=== PATIENT | female | born 1955 | race Caucasian/White ===

== ENCOUNTER 2019-05-24 14:09 | Observation (INO) ==
--- NOTE | 2019-05-24 14:13 | Emergency Department Note ---
Disposition Clinical Impression: Left hip pain, History of fall, Muscle tear Disposition: Admitted As Inpatient Condition: Good Referrals: Derek Rizvi MD [Primary Care Provider] - Forms: ED Satisfaction Letter Time of Disposition: 15:35 Fall HPI - General Chief Complaint: ED Extremity Problem,Nontraumatic Stated Complaint: Fall onset 2 weeks, pain to left groin Time Seen by Provider: 05/24/19 14:11 Source: patient, EMS Mode of arrival: EMS Limitations: no limitations Nursing Notes Reviewed: Yes Vital Signs Reviewed: Yes - History of Present Illness HPI Narrative: Patient relates she fell about 2 weeks ago to her knees. She relates that she is "always in my power chair" but she needed to adjust a fan and got up to walk 3 steps to it and back. In turning around she states that her dog was under foot and she fell to her knees and to her right shoulder. She has had some soreness in the right shoulder but states that she always has pain in it with motion. She has had a history of a rotator cuff injury there. She indicates she is not concerned about the shoulder. She has not had pain to her knees but has had some pain in her left hip. She initially felt as if something might of been pulled but did not have severe pain until today. She relates she leaned forward from her power chair and felt a pop in her groin area and had severe sharp and burning pain. This was intolerable and a squad was called for her transport. She has taken a muscle relaxer, half a Percocet and ibuprofen at 10:30 this morning without relief. She denies pain to her back or abdomen. She denies any other new pain. She has not had numbness or tingling or swelling down the legs. She has had both knees replaced and does not have new pains there. Squad reported to the chest with motion to their cot she was screaming in pain. Pt Subjective Complaint: fall Onset (ago): week(s) (2) Fall From: standing Fall Witnessed: no Place Fall Occurred: home Loss of Consciousness: none Prolonged Down Time?: no Symptoms Prior to Fall: none Context: tripped/slipped Location of injury - extremities: Left: hip Severity: moderate, severe Quality: sharp, aching Associated symptoms (after fall): Reports: unable to walk. Denies: headache, neck pain, numbness, weakness, chest pain, shortness of breath, abdominal pain, hematuria, lightheaded, vertigo, confusion - Related Data Home Medications Medication Instructions Recorded Confirmed Aspirin Enteric Coated [Aspirin EC] 81 mg PO DAILY 08/04/15 05/24/19 Clopidogrel [Plavix] 75 mg PO DAILY 08/04/15 05/24/19 DULoxetine [Cymbalta] 20 mg PO DAILY 08/04/15 05/24/19 Sitagliptin Phos/Metformin HCl 1 each PO BID 08/04/15 05/24/19 [Janumet 50-1,000 mg Tablet] TraZODone 400 mg PO HS 08/04/15 05/24/19 Previous Rx's Medication Instructions Recorded Cyanocobalamin (B-12) 1,000 mcg PO DAILY tablet 08/31/15 Ferrous Sulfate 325 mg PO DAILY@0800 tablet 08/31/15 Folic Acid 1 mg PO DAILY tablet 08/31/15 Metoclopramide [Reglan] 10 mg PO TIDAC #0 08/31/15 OxyCODONE/APAP 5/325 [Percocet 1 each PO Q4HR PRN #60 tablet 08/31/15 5/325] Acetaminophen/Butalbital/Caffe 1 each PO Q6H #16 tablet 12/06/16 [Fioricet] Allergies Allergy/AdvReac Type Severity Reaction Status Date / Time codeine Allergy Hives Verified 05/24/19 14:11 diazepam [From Valium] Allergy Hives Verified 05/24/19 14:11 hydrocodone [From Vicodin] Allergy Hives Verified 05/24/19 14:11 Penicillins [PCN] Allergy Hives Verified 05/24/19 14:11 mirtazapine [From Remeron] AdvReac Nausea Verified 05/24/19 14:11 risperidone [From Risperdal] AdvReac Nausea Verified 05/24/19 14:11 All systems ED: reviewed and negative except as stated. Fall PMH - Past Medical History Medical history: Reports: arthritis, COPD, coronary artery disease, diabetes, hypertension, myocardial infarction, other (Morbid obesity) Surgical history: Reports: angioplasty/stent, , cholecystectomy, knee replacement (Bilateral), orthopedic, other (Left shoulder replacement), other (Bilateral wrist surgery) Psychiatric history: Reports: depression MATTE CUTTER history: Reports: no MATTE CUTTER history - Social History Smoking Status: Never smoker Alcohol use: Reports: none Drug use: Reports: none Physical Exam - General Limitations: no limitations General appearance: alert, in no apparent distress, other (Patient yelled with brief pain in moving from the EMS cot to our bed.) - Head Head exam: atraumatic, normocephalic, normal inspection - Eye Eye exam: Present: normal appearance, PERRL, EOMI - ENT ENT exam: normal exam, normal oropharynx, mucous membranes moist - Neck Neck exam: Present: normal inspection, full ROM, trachea midline - Chest Chest inspection: Present: normal inspection, symmetric chest wall rise. Absent: tenderness - Respiratory Respiratory exam: Present: normal lung sounds bilaterally. Absent: respiratory distress, wheezes, prolonged expiratory phase - Cardiovascular Cardiovascular exam: Present: regular rate, normal rhythm, normal heart sounds - Abdominal Exam Abdominal exam: Present: soft, Non-Tender, normal bowel sounds. Absent: tenderness, distention, guarding, rebound, rigidity - Expanded Upper Extremity Exam Shoulder exam: Present: normal inspection, full ROM, tenderness (Mild over the dorsal lateral aspect of the right shoulder). Absent: swelling, dislocation, tenderness over AC joint Arm exam: Present: normal inspection, full ROM Elbow exam: Present: normal inspection, full ROM. Absent: tenderness, swelling Forearm/Wrist exam: Present: normal inspection, full ROM. Absent: tenderness, swelling Hand exam: Present: normal inspection, full ROM. Absent: tenderness, swelling Vascular exam: Normal: capillary refill, radial pulse - Expanded Lower Extremity Exam Hip/Pelvis exam: Present: tenderness (Anterior and lateral aspect of the left hip.), external rotation, shortening, pelvis stable, other (Patient's left leg appears to be about 2 cm shorter than the right with some external rotation. The patient is unsure if this is truly new) Knee exam: Present: normal inspection, other (Midline anterior scar consistent with her knee replacements.). Absent: tenderness, swelling Lower leg exam: Present: normal inspection, full ROM. Absent: tenderness, swelling, palpable cord, Homans' sign Neurovascular/Tendon exam: Present: normal capillary refill. Absent: pulse deficit Gait: not tested/not observed - Neurological Exam Neurological exam: Present: alert, oriented X3 - Psychiatric Psychiatric exam: Present: normal affect, normal mood - Skin Skin exam: Present: warm, dry, intact, normal color. Absent: diaphoresis, pallor Course Course Narrative: 1520: Care has been discussed with Dr. Garcia. 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 He would like a phone consultation with [facility] orthopedists to be sure that they would not want any alternate treatment for desire transfer. If they recommend symptomatic treatment he states that he will watch her at this facility. 1522: Dr Lloyd would not do any surgical intervention or treatment that could not be done here. He recommends that the patient stay at this facility. Dr. Garcia has given verbal orders for her observation. Vital Signs Temperature 98.2 F 05/24/19 14:10 Pulse Rate 78 05/24/19 14:10 Respiratory Rate 18 05/24/19 14:10 Blood Pressure 100/73 05/24/19 14:10 O2 Sat by Pulse Oximetry 98 05/24/19 14:10 Temperature 98.2 F 05/24/19 14:10 Pulse Rate 80 05/24/19 14:45 Respiratory Rate 18 05/24/19 14:45 Blood Pressure 133/66 05/24/19 14:45 O2 Sat by Pulse Oximetry 98 05/24/19 14:45 Oxygen Delivery Oxygen Delivery Room Air Fall - Differential Diagnosis Likely: traumatic injury - Medical Records Medical records reviewed: Yes I reviewed the patient's medical records. - Radiology Data Radiology results reviewed: Yes I reviewed the patient's radiology results. CT is performed of the pelvis without contrast. This demonstrates the lower lumbar spine, sacrum and sacroiliac junctions to be without acute abnormality. Pelvis was is without apparent fracture including pubic rami. Bilateral hips are without evidence for fracture, dislocation or hip effusion. No acute abno rmality is seen to account for this patient's left hip pain. This is on my interpretation. Impressions Pelvis CT 05/24/19 14:11 IMPRESSION: High-grade partial tear of the adductor musculature of the left hip with large intramuscular hematoma. No evidence of acute traumatic displaced left hip fracture. Sensitivity for detection of subtle nondisplaced fractures limited secondary to artifact from body habitus. Mild bilateral hip osteoarthritis. No joint effusion or hip dislocation. D/ / Gato Mcnair MD / Gato Mcnair MD Interpreting Provider: Gato Mcnair MD
[2019-05-24] MEDS ORDERED: *HR* OxyCODONE/APAP 5/325 TABLET PO ONE (15:37)
[2019-05-24] MEDS ORDERED: Ondansetron ODT 4 MG TAB.RAPDIS SL PRN (16:06)
[2019-05-24] MEDS ORDERED: *HR* OxyCODONE/APAP 5/325 TABLET PO PRN (16:06)
[2019-05-24] MEDS ORDERED: Naloxone 0.4 MG/ML INJ IVP PRN (16:06)
[2019-05-24] MEDS ORDERED: MOM Conc 10 ML UD.LIQ PO PRN (16:06)
[2019-05-24] MEDS ORDERED: Mag Hydrox/Al Hydrox/Simeth 30 ML UDC PO PRN (16:06)
[2019-05-24] MEDS ORDERED: *HR* Metformin 500 MG TABLET PO SCH (17:00)
[2019-05-24] MEDS ORDERED: *HR* SitaGLIPtin 25 MG TABLET PO SCH (17:00)
[2019-05-24] MEDS ORDERED: Acetaminophen/Butalbital/CaffeineTABLET PO PRN (17:34)
[2019-05-24] MEDS ORDERED: D5% in Water 1,000 ML IVC PRN (17:41)
[2019-05-24] MEDS ORDERED: *HR* Dextrose 50 % in Water (Syg) 50 ML SYRINGE IVP PRN (17:41)
[2019-05-24] MEDS ORDERED: Dextrose Gel 15 GM/37.5 ML TUBE PO PRN ×2 (17:41)
[2019-05-24] MEDS ORDERED: Acetaminophen/Butalbital/CaffeineTABLET PO SCH (18:00)
--- NOTE | 2019-05-24 18:19 | Internal Med History&Physical ---
Date of Encounter: 05/24/19 Time of Encounter: 17:40 Assessment and Plan (1) Muscle tear Current visit: Yes Status: Acute She will be given scheduled and prn analgesics. PT and OT evaluation will be done (2) VALERIE (obstructive sleep apnea) Current visit: Yes Status: Chronic Continue CPAP at bedtime. (3) Morbid obesity with BMI of 60.0-69.9, adult Current visit: Yes Status: Chronic Check TSH. She will be placed on diabetic diet. (4) Anemia Current visit: No Status: Acute History of microcytic anemia. Check CBC in a.m. Qualifiers: Anemia type: unspecified type Qualified Code(s): D64.9 - Anemia, unspecified (5) DM type 2 (diabetes mellitus, type 2) Current visit: No Status: Chronic Check hemoglobin A1c in a.m. Qualifiers: Diabetes mellitus complication status: without complication Qualified Code(s): E11.9 - Type 2 diabetes mellitus without complications (6) NAFLD (nonalcoholic fatty liver disease) Current visit: No Status: Acute Check LFTs in a.m. (7) CAD (coronary artery disease) Current visit: Yes Status: Chronic Suspect DAPT can be reduced to single agent since several years have elapsed since stent placement. Qualifiers: Coronary Disease-Associated Artery/Lesion type: [place] artery [place] vs. transplanted heart: [place] heart Associated angina: without angina Qualified Code(s): I25.10 - Atherosclerotic heart disease of [place] coronary artery without angina pectoris Internal Medicine - H&P: HPI Chief complaint: Groin pain Admitted From: Emergency Dept Plans for Post Hospital Care: Home History of present illness: Ms. Johns is a 63 year old female who came to emergency room complaining of pain in her groin onset approximately 10 days ago. She reports she fell at home while ambulating approximately 4 days prior to the onset of groin pain. She landed on her right shoulder and knees. A few days later she noticed groin pain onset but did not pursue medical intervention. The evening of May 21 she reports bending over from her power chair to flower buncher or picker something on the floor and felt a pop sensation near where the groin pain had been occurring. There was mi nimal increase in pain at that time but she reports today while bending over on the toilet there was noticeable worsening of the groin pain. She came to emergency room and was evaluated and was found to have a high-grade partial tear of the abductor musculature the left hip with large intramuscular hematoma measuring 5.3 cm diameter. There was no evidence of fracture. Contact was made with orthopedics who did not recommend surgical intervention. She was admitted to [facility] for pain control and ongoing care needs. Monty skeletal history is significant for left knee replacement 08/2014, left reverse total shoulder replacement 12/2013, right fibular fracture treated nonoperatively August 2015, and right knee replacement approximately 2006. She has had surgery on both wrists. She denies known gout. She states her maximum ambulation is 4 steps in the home getting from her power chair into the bathroom. 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 Past Med Surg Social Fam HX - Past Medical History Medical history: arthritis, COPD, coronary artery disease, diabetes, hypertension, myocardial infarction, other Additional medical history: sciatica Psychiatric history: depression - Past Surgical History Surgical History: angioplasty/stent, , cholecystectomy, knee replacement, orthopedic, other, other Additional surgical history: LEFT SHOULDER AND X 2 CARDIAC STENTS. BILAT KNEE REPLACEMENT. bilat wrists - Social History Smoking Status: Never smoker Smokeless Tobacco Status: No Alcohol use: none Drug use: none - Family History Mother Family Member Ethnicity: Non- Living Status: Still Living Hx Family Cardiac Disorders: No Hx Family Respiratory Disorders: No Hx Family Cancer: Yes (PATIENTS AUNT/OVARIAN CANCER) Hx Family GI Disorders: Yes (THRASHER'S ESOPHAGUS) Hx Family Endocrine Disorder: No Hx Family Neuromuscular Disorders: No Hx Family Neurologic Disorders: Yes (DEMENTIA) Hx Family HEENT Disorders: No Hx Family Autoimmune Disorders: No Father Adopted: No Family Member Ethnicity: Non- Living Status: Hx Family Cardiac Disorders: Yes (PT'S GRANDFATHER) Hx Family Respiratory Disorders: No Hx Family Cancer: No Hx Family GI Disorders: Yes (ABDOMINAL MASS/COLOSTOMY) Hx Family Endocrine Disorder: No Hx Family Neuromuscular Disorders: No Hx Family Neurologic Disorders: Yes (STROKE/TIA'S) Hx Family HEENT Disorders: No Hx Family Autoimmune Disorders: No Internal Medicine - H&P: Meds Aspirin Enteric Coated [Aspirin EC] 81 mg PO DAILY 08/04/15 [History] Clopidogrel [Plavix] 75 mg PO DAILY 08/04/15 [History] DULoxetine [Cymbalta] 20 mg PO DAILY 08/04/15 [History] Sitagliptin Phos/Metformin HCl [Janumet 50-1,000 mg Tablet] 1 each PO BID 08/04/15 [History] TraZODone 400 mg PO HS 08/04/15 [History] Cyanocobalamin (B-12) 1,000 mcg PO DAILY tablet 08/31/15 [Rx] Ferrous Sulfate 325 mg PO DAILY@0800 tablet 08/31/15 [Rx] Folic Acid 1 mg PO DAILY tablet 08/31/15 [Rx] Metoclopramide [Reglan] 10 mg PO TIDAC #0 08/31/15 [Rx] OxyCODONE/APAP 5/325 [Percocet 5/325] 1 each PO Q4HR PRN #60 tablet 08/31/15 [Rx] Acetaminophen/Butalbital/Caffe [Fioricet] 1 each PO Q6H #16 tablet 12/06/16 [Rx] Allergy/AdvReac Type Severity Reaction Status Date / Time codeine Allergy Hives Verified 05/24/19 14:11 diazepam [From Valium] Allergy Hives Verified 05/24/19 14:11 hydrocodone [From Vicodin] Allergy Hives Verified 05/24/19 14:11 Penicillins [PCN] Allergy Hives Verified 05/24/19 14:11 mirtazapine [From Remeron] AdvReac Nausea Verified 05/24/19 14:11 risperidone [From Risperdal] AdvReac Nausea Verified 05/24/19 14:11 All Systems PM: A 10-system review of systems was performed and is negative for pertinent findings except as documented above in the HPI. Review of systems: Review of systems from her August 2015 [facility] hospitalization were reviewed and revised as below. Gen.: Weight has increased from 118.529 kg on 08/29/2015 to present weight of 147.531 kg. Cardiovascular: She has a history of hypertension. She has known ASHD status post ID [id number]. She had a heart catheter with 2 stents placed after the ID. She had repeat catheter approximately 06/2014 prior to knee surgery and was told no further intervention was needed. She had a DVT approximately 1998 without recurrence. Respiratory: She is a lifelong nonsmoker and denies chronic lung disease. She has VALERIE and wears CPAP at bedtime. GI: She has NAFLD but denies other disorders of her liver or exocrine pancreas. She is status post cholecystectomy. : She said UTIs in the past but denies other kidney or bladder disorders. Neurologic: She denies large distribution strokes or seizures. Endocrine: She was diagnosed with DM 2 approximately 2010. She has hyperlipidemia but is not on medication. She has no known thyroid disease. Hematology/oncology: She has had anemia in the past. She denies internal malignancies or other blood disorders Psychiatric: She has anxiety and depression Musk skeletal: As per history of present illness - Constitutional Vitals: Temp Pulse Resp BP Pulse Ox 98.0 F 58 20 132/77 96 05/24/19 17:12 05/24/19 17:12 05/24/19 17:12 05/24/19 17:12 05/24/19 17:12 Exam: Gen.: She is well-developed morbidly obese female lying in bed who appears in no severe distress at present time HEENT: Head is atraumatic and normocephalic. Eyes: EOMI. There is no scleral icterus. Mouth: Mucosa is moist. Neck: Supple and nontender. There is no thyromegaly or adenopathy noted. Heart: Regular without murmurs gallops or ectopics Lungs: No wheezes or crackles are heard. Abdomen: Soft and nontender. No masses or guarding are noted. Extremities: There is no cyanosis edema or clubbing noted. Dorsalis pedis and posterior tibial pulses are trace to 1+ palpable bilaterally. Neurologic: Mental status: She is talkative and a good historian. Cranial nerves: Smile is symmetric. Forehead wrinkles bilaterally. Tongue protrudes midline. EOMI. Motor: There is no pronator drift. Cerebellar: Finger to nose is intact bilaterally. Skin: Warm and dry Internal Med - H&P Results - Impressions ITS Impressions Pelvis CT 05/24/19 14:11 IMPRESSION: High-grade partial tear of the adductor musculature of the left hip with large intramuscular hematoma. No evidence of acute traumatic displaced left hip fracture. Sensitivity for detection of subtle nondisplaced fractures limited secondary to artifact from body habitus. Mild bilateral hip osteoarthritis. No joint effusion or hip dislocation. D/ / 05/24/2019 15:14:01 Gato Mcnair MD / harish Interpreting Provider: Gato Mcnair MD
[2019-05-24] MEDS ORDERED: traZODone 50 MG TABLET PO SCH (21:00)
[2019-05-24] MEDS: *HR* Metformin 500 MG TABLET PO SCH (21:51)
[2019-05-24] MEDS: Acetaminophen 325 MG TABLET PO SCH (21:52)
[2019-05-24] MEDS: Insulin LISPRO 300 UNITS/3 ML VIAL SQ SCH (21:57)
[2019-05-24] MEDS: traZODone 50 MG TABLET PO SCH (22:46)
[2019-05-24] MEDS: *HR* OxyCODONE Immed Rel 5 MG TABLET PO PRN (22:47)
[2019-05-24] MEDS: Fluticasone Propionate Nasal 50 MCG/SPRAY BOTTLE NS SCH (23:14)
[2019-05-25] MEDS: Acetaminophen 325 MG TABLET PO SCH ×4 (00:57→16:59)
[2019-05-25 03:56] LABS: Basophils # 0.1 K/mcL (0.0-0.2); Basophils % 0.8 %; Eosinophils # 0.3 K/mcL (0.0-0.6); Eosinophils % 3.9 %; Hematocrit 33.7 % (35.3-44.9); Hemoglobin 10.9 g/dL (11.5-15.4); Immature Granulocytes % 0.8 % (0-4); Lymphocytes % 26.3 %; Mean Corpuscular HGB Conc 32.3 g/dL (31.6-35.5); Mean Corpuscular Hemoglobin 27.5 pg (28.0-33.3); Mean Corpuscular Volume 85.1 fL (83.0-100.0); Mean Platelet Volume 8.4 fL (9.4-12.4); Monocytes # 0.8 K/mcL (0.0-1.3); Monocytes % 9.9 %; Neutrophils # 4.5 K/mcL (1.6-8.9); Platelet Count 270 K/mcL (140-400); Red Blood Count 3.96 M/mcL (3.82-4.97); Red Cell Distribution Width 15.5 % (11.5-14.5); Segmented Neutrophils % 58.3 %; White Blood Count 7.8 K/mcL (4.3-11.1)
[2019-05-25 04:36] LABS: Alanine Aminotransferase 11 Units/L (7-52); Albumin 3.3 g/dL (3.5-5.7); Albumin/Globulin Ratio 1.4 (1.1-2.2); Alkaline Phosphatase 73 Units/L (34-104); Aspartate Amino Transferase 10 Units/L (13-39); BUN/Creatinine Ratio 16 (6-26); Bilirubin,Total 0.4 mg/dL (0.3-1.0); Blood Urea Nitrogen 11 mg/dL (8-23); Calcium 8.9 mg/dL (8.6-10.3); Carbon Dioxide 33 mEq/L (23-29); Chloride 97 mEq/L (98-107); Globulin 2.3 g/dL (2.4-3.5); Glucose 102 mg/dL (70-105); Osmolality,Calculated 276 (280-300); Potassium 4.4 mEq/L (3.5-5.1); Sodium 133 mEq/L (136-145); Total Protein 5.6 g/dL (6.4-8.9); eGFR For African Americans > 60 (> 60); eGFR For Non-African Americans > 60 (> 60)
[2019-05-25 04:51] LABS: Thyroid Stimulating Hormone 3.077 mcIU/mL (0.340-5.600)
[2019-05-25] MEDS: *HR* OxyCODONE Immed Rel 5 MG TABLET PO PRN (06:38)
[2019-05-25] MEDS: Insulin LISPRO 300 UNITS/3 ML VIAL SQ SCH ×4 (08:50→19:36)
[2019-05-25] MEDS: Aspirin Enteric Coated 81 MG Tablet PO SCH (08:51)
[2019-05-25] MEDS: Folic Acid 1 MG TABLET PO SCH (08:53)
[2019-05-25] MEDS: *HR* Metformin 500 MG TABLET PO SCH ×2 (08:53→19:35)
[2019-05-25] MEDS: Cyanocobalamin (B-12) 1,000 MCG TABLET PO SCH (08:53)
[2019-05-25] MEDS: *HR* SitaGLIPtin 25 MG TABLET PO SCH (08:53)
[2019-05-25] MEDS: Fluticasone Propionate Nasal 50 MCG/SPRAY BOTTLE NS SCH ×2 (08:55→19:36)
[2019-05-25] MEDS: Ibuprofen 400 MG TABLET PO PRN ×2 (08:59→19:34)
[2019-05-25 10:27] LABS: Estimated Average Glucose 146 mg/dl
--- NOTE | 2019-05-25 10:29 | Internal Med Progress Note ---
Date of Encounter: 05/25/19 Time of Encounter: 10:22 - Assessment and plan (1) Muscle tear Current Visit: Yes Status: Acute Assessment and plan: May 25. Continue present Rx. Anticipate discharge home tomorrow if stable. She inquired about home health PT/OT. (2) VALERIE (obstructive sleep apnea) Current Visit: Yes Status: Chronic Assessment and plan: May 25. Continue CPAP at bedtime (3) Morbid obesity with BMI of 60.0-69.9, adult Current Visit: Yes Status: Chronic Assessment and plan: May 25. TSH was normal at 3.077. (4) Anemia Current Visit: No Status: Acute Assessment and plan: May 25. Hemoglobin slightly low at 10.9. Anemia testing will be ordered. Qualifiers: Anemia type: unspecified type Qualified Code(s): D64.9 - Anemia, unspecified (5) DM type 2 (diabetes mellitus, type 2) Current Visit: No Status: Chronic Assessment and plan: May 25. Hemoglobin A1c pending. Qualifiers: Diabetes mellitus complication status: without complication Qualified Code(s): E11.9 - Type 2 diabetes mellitus without complications (6) NAFLD (nonalcoholic fatty liver disease) Current Visit: No Status: Acute Assessment and plan: May 25. LFTs unremarkable. (7) CAD (coronary artery disease) Current Visit: Yes Status: Chronic Assessment and plan: May 25. Continue aspirin and Plavix. Qualifiers: Coronary Disease-Associated Artery/Lesion type: [place] artery [place] vs. transplanted heart: [place] heart Associated angina: without angina Qualified Code(s): I25.10 - Atherosclerotic heart disease of [place] coronary artery without angina pectoris - Subjective Interval history: May 25. She has no new complaints. She states her pain has significantly lessened. - Constitutional Vitals: Temp Pulse Resp BP Pulse Ox 97.9 F 63 20 149/84 94 05/25/19 06:31 05/25/19 06:31 05/25/19 06:31 05/25/19 06:31 05/25/19 06:31 Exam: She is resting comfortably in bed and appears in no acute distress. Her affect is bright and cheerful. I reviewed her medications and lab results. Internal Medicine: Result - Labs CBC & Chem 7: 05/25/19 03:30 05/25/19 03:30 Labs: Short CBC 05/25/19 Range/Units 03:30 WBC 7.8 (4.3-11.1) K/mcL Hgb 10.9 L (11.5-15.4) g/dL Hct 33.7 L (35.3-44.9) % Plt Count 270 (140-400) K/mcL Neutrophils # 4.5 (1.6-8.9) K/mcL BMP 05/25/19 03:30 Sodium 133 L Potassium 4.4 Chloride 97 L Carbon Dioxide 33 H BUN 11 Creatinine 0.70 Glucose 102 Calcium 8.9 Liver Function 05/25/19 Range/Units 03:30 Total Bilirubin 0.4 (0.3-1.0) mg/dL AST 10 L (13-39) Units/L ALT 11 (7-52) Units/L Alkaline Phosphatase 73 (34-104) Units/L Albumin 3.3 L (3.5-5.7) g/dL - Impressions Impressions Pelvis CT 05/24/19 14:11 IMPRESSION: High-grade partial tear of the adductor musculature of the left hip with large intramuscular hematoma. No evidence of acute traumatic displaced left hip fracture. Sensitivity for detection of subtle nondisplaced fractures limited secondary to artifact from body habitus. Mild bilateral hip osteoarthritis. No joint effusion or hip dislocation. D/ / 05/24/2019 15:14:01 Gato Mcnair MD / harish Interpreting Provider: Gato Mcnair MD Consult Discharge Plan - Plan Referrals: Derek Rizvi MD [Primary Care Provider] - 1 week
[2019-05-25] MEDS: traZODone 50 MG TABLET PO SCH (21:48)
[2019-05-26] MEDS: Acetaminophen 325 MG TABLET PO SCH ×2 (00:28→05:56)
[2019-05-26 06:40] VITALS: BP 142/88
[2019-05-26] MEDS: Folic Acid 1 MG TABLET PO SCH (07:50)
[2019-05-26] MEDS: Aspirin Enteric Coated 81 MG Tablet PO SCH (07:50)
[2019-05-26] MEDS: *HR* SitaGLIPtin 25 MG TABLET PO SCH (07:51)
[2019-05-26] MEDS: Cyanocobalamin (B-12) 1,000 MCG TABLET PO SCH (07:51)
[2019-05-26] MEDS: *HR* Metformin 500 MG TABLET PO SCH (07:51)
[2019-05-26] MEDS: Fluticasone Propionate Nasal 50 MCG/SPRAY BOTTLE NS SCH (07:52)
[2019-05-26] MEDS: Insulin LISPRO 300 UNITS/3 ML VIAL SQ SCH (07:53)
[2019-05-26] MEDS ORDERED: *HR* Metformin 500 MG TABLET PO SCH (09:00)
--- NOTE | 2019-05-26 09:33 | Discharge Summary ---
Date of Encounter: 05/26/19 Time of Encounter: 09:25 - Discharge Diagnosis (1) Muscle tear Priority: Primary Status: Acute (2) VALERIE (obstructive sleep apnea) Priority: Secondary Status: Chronic (3) Morbid obesity with BMI of 60.0-69.9, adult Priority: Secondary Status: Chronic (4) Anemia Priority: Secondary Status: Acute Qualifiers: Anemia type: unspecified type Qualified Code(s): D64.9 - Anemia, unspecified (5) DM type 2 (diabetes mellitus, type 2) Priority: Secondary Status: Chronic Qualifiers: Diabetes mellitus complication status: without complication Qualified Code(s): E11.9 - Type 2 diabetes mellitus without complications (6) NAFLD (nonalcoholic fatty liver disease) Priority: Secondary Status: Acute (7) CAD (coronary artery disease) Priority: Secondary Status: Chronic Qualifiers: Coronary Disease-Associated Artery/Lesion type: [place] artery [place] vs. transplanted heart: [place] heart Associated angina: without angina Qualified Code(s): I25.10 - Atherosclerotic heart disease of [place] coronary artery without angina pectoris Hospital course: Ms. Johns is a 63 year old female who came to emergency room complaining of pain in her groin onset approximately 10 days ago. She reports she fell at home while ambulating approximately 4 days prior to the onset of groin pain. She landed on her right shoulder and knees. A few days later she noticed groin pain onset but did not pursue medical intervention. The evening of May 21 she reports bending over from her power chair to pickling solution maker something on the floor and felt a pop sensation near where the groin pain had been occurring. There was minimal increase in pain at that time but she reports today while bending over on the toilet there was noticeable worsening of the groin pain. She came to emergency room and was evaluated and was found to have a high-grade partial tear of the abductor musculature the left hip with large intramuscular hematoma measuring 5.3 cm diameter. There was no evidence of fracture. Contact was made with orthopedics who did not recommend surgical intervention. She was admitted to [facility] for pain control and ongoing care needs. Initial orders were written by the emergency room physician. I saw her on May 24 and performed the history and physical. She was given scheduled Tylenol. Oxycodone IR was available on a prn basis. She had physical therapy and occupational therapy evaluations. She had significant decrease in pain and felt stable for discharge home on May 26. Home health services will be ordered. She will follow with her PCP Dr. Derek Rizvi within [address] Rzivi can address continuing DAPT or reducing to single agent since several years have elapsed since cardiac stent placement. - Time Spent with Patient Total time spent providing and/or coordinating discharge services: - Discharge Medications Prescriptions: Continued Sitagliptin Phos/Metformin HCl [Janumet 50-1,000 mg Tablet] 1 each PO BID Ferrous Sulfate 325 mg PO DAILY@0800 tablet Folic Acid 1 mg PO DAILY tablet Metoclopramide [Reglan] 10 mg PO TIDAC #0 Magnesium Oxide [Magnesium Oxide 400] 400 mg PO DAILY Fluticasone Propionate Nasal 50 mcg IH ONCE Butalb/Acetaminophen/Caffeine [Esgic 50-325-40 mg Tablet] 2 each PO Q4HR PRN PRN Reason: Headache Oxybutynin Chloride [Ditropan XL] 10 tab PO BID Metoprolol Tartrate 50 mg PO BID Cyclobenzaprine HCl 10 mg PO BID PRN PRN Reason: Muscle spasms Esomeprazole Magnesium [Nexium] 40 mg PO DAILY Glimepiride [Amaryl] 2 mg PO 0800 Tizanidine HCl [Zanaflex] 2 mg PO TID PRN PRN Reason: Not listed on medication list Cetirizine HCl [24Hour Allergy] 10 mg PO DAILY Percocet 5-325 mg Tablet 0.5 mg PO BID PRN PRN Reason: Pain Home Medications: Sitagliptin Phos/Metformin HCl [Janumet 50-1,000 mg Tablet] 1 each PO BID 08/04/15 [History] Ferrous Sulfate 325 mg PO DAILY@0800 tablet 08/31/15 [Rx] Folic Acid 1 mg PO DAILY tablet 08/31/15 [Rx] Metoclopramide [Reglan] 10 mg PO TIDAC #0 08/31/15 [Rx] Butalb/Acetaminophen/Caffeine [Esgic 50-325-40 mg Tablet] 2 each PO Q4HR PRN 05/25/19 [History] Cetirizine HCl [24Hour Allergy] 10 mg PO DAILY 05/25/19 [History] Cyclobenzaprine HCl 10 mg PO BID PRN 05/25/19 [History] Esomeprazole Magnesium [Nexium] 40 mg PO DAILY 05/25/19 [History] Fluticasone Propionate Nasal 50 mcg IH ONCE 05/25/19 [History] Glimepiride [Amaryl] 2 mg PO 0800 05/25/19 [History] Magnesium Oxide [Magnesium Oxide 400] 400 mg PO DAILY 05/25/19 [History] Metoprolol Tartrate 50 mg PO BID 05/25/19 [History] Oxybutynin Chloride [Ditropan XL] 10 tab PO BID 05/25/19 [History] Percocet 5-325 mg Tablet 0.5 mg PO BID PRN 05/25/19 [History] Tizanidine HCl [Zanaflex] 2 mg PO TID PRN 05/25/19 [History] Allergies/Adverse Reactions: Allergy/AdvReac Type Severity Reaction Status Date / Time codeine Allergy Hives Verified 05/24/19 14:11 diazepam [From Valium] Allergy Hives Verified 05/24/19 14:11 hydrocodone [From Vicodin] Allergy Hives Verified 05/24/19 14:11 Penicillins [PCN] Allergy Hives Verified 05/24/19 14:11 mirtazapine [From Remeron] AdvReac Nausea Verified 05/24/19 14:11 risperidone [From Risperdal] AdvReac Nausea Verified 05/24/19 14:11 Date of admission: 05/24/19 15:52 Primary care physician: Derek Rizvi MD Consults: 05/24/19 16:06 Consult to Physical Therapy [CONS] Routine Comment: Evaluate, develop and implement POC Reason for Consult: Left hip adductor muscle tear and hematoma. Evaluate for safety motion and transfers for anticipated home management. Does patient have active BEDREST order?: No Is patient medically & hemodynamically stable?: Yes Patient assessed for mobility or mobilized this visit?: No Consult to Call Or Contact Centre Operator [CONS] Routine Reason for SW Consult: Assist with home resources for anticipated return to home and home care. pt had care companions prior to admission 05/24/19 18:34 Consult to Occupational Therapy [CONS] Routine Comment: Evaluate, develop and implement POC Reason for Consult: Hip adductor muscle tear Does patient have active BEDREST order?: No Is patient medically & hemodynamically stable?: Yes Patient assessed for mobility or mobilized this visit?: Yes Consult to Physical Therapy [CONS] Routine Comment: Evaluate, develop and implement POC Reason for Consult: Hip adductor muscle tear Does patient have active BEDREST order?: No Is patient medically & hemodynamically stable?: Yes Patient assessed for mobility or mobilized this visit?: Yes - Constitutional Vitals: Temp Pulse Resp BP Pulse Ox 97.9 F 60 18 142/88 94 05/26/19 06:35 05/26/19 06:35 05/26/19 06:35 05/26/19 06:35 05/26/19 06:35 - Patient Status Disposition: Home Health Service Condition: Good - Discharge Instructions Follow Up With: Derek Rizvi MD [Primary Care Provider] - 1 week - Diet and Activity Activity: as per physical therapy Diet: diabetic diet
--- NOTE | 2019-05-26 09:39 | Physician Discharge Referral ---
Home Health/Hosp Referral Info Transfer to: Home Health Attending Provider: Jose Provider in Charge Post Discharge: PCP (Derek Rizvi M.D.) - Diagnosis (1) Muscle tear Priority: Primary Status: Acute (2) VALERIE (obstructive sleep apnea) Priority: Secondary Status: Chronic (3) Morbid obesity with BMI of 60.0-69.9, adult Priority: Secondary Status: Chronic (4) Anemia Priority: Secondary Status: Acute (5) DM type 2 (diabetes mellitus, type 2) Priority: Secondary Status: Chronic (6) NAFLD (nonalcoholic fatty liver disease) Priority: Secondary Status: Acute (7) CAD (coronary artery disease) Priority: Secondary Status: Chronic - Respiratory Orders Smoking Cessation: Smoking cessation has been advised. For more information, call the [employer] Quit Line at 0-913-IDBJ-NOW. - Diet/Nutrition Diet/Nutrition Orders: No Concentrated Sweets - Activity Activity Orders: Walker - Services Needed Following services are medically necessary services: Nursing, Home Health Aide, Physical Therapy, Occupational Therapy - Transfer Medications Home Medications: Sitagliptin Phos/Metformin HCl [Janumet 50-1,000 mg Tablet] 1 each PO BID 08/04/15 [History] Ferrous Sulfate 325 mg PO DAILY@0800 tablet 08/31/15 [Rx] Folic Acid 1 mg PO DAILY tablet 08/31/15 [Rx] Metoclopramide [Reglan] 10 mg PO TIDAC #0 08/31/15 [Rx] Butalb/Acetaminophen/Caffeine [Esgic 50-325-40 mg Tablet] 2 each PO Q4HR PRN 05/25/19 [History] Cetirizine HCl [24Hour Allergy] 10 mg PO DAILY 05/25/19 [History] Cyclobenzaprine HCl 10 mg PO BID PRN 05/25/19 [History] Esomeprazole Magnesium [Nexium] 40 mg PO DAILY 05/25/19 [History] Fluticasone Propionate Nasal 50 mcg IH ONCE 05/25/19 [History] Glimepiride [Amaryl] 2 mg PO 0800 05/25/19 [History] Magnesium Oxide [Magnesium Oxide 400] 400 mg PO DAILY 05/25/19 [History] Metoprolol Tartrate 50 mg PO BID 05/25/19 [History] Oxybutynin Chloride [Ditropan XL] 10 tab PO BID 05/25/19 [History] Percocet 5-325 mg Tablet 0.5 mg PO BID PRN 05/25/19 [History] Tizanidine HCl [Zanaflex] 2 mg PO TID PRN 05/25/19 [History] Allergies/Adverse Reactions: Allergy/AdvReac Type Severity Reaction Status Date / Time codeine Allergy Hives Verified 05/24/19 14:11 diazepam [From Valium] Allergy Hives Verified 05/24/19 14:11 hydrocodone [From Vicodin] Allergy Hives Verified 05/24/19 14:11 Penicillins [PCN] Allergy Hives Verified 05/24/19 14:11 mirtazapine [From Remeron] AdvReac Nausea Verified 05/24/19 14:11 risperidone [From Risperdal] AdvReac Nausea Verified 05/24/19 14:11 Certification: Further, I certify that my clinical findings support that this patient is homebound (i.e. absences from home require considerable and taxing effort and are for medical reasons or shinto services or infrequently or short duration when for other reasons) because: Homebound Reason: Leaving home requires considerable and taxing effort due to condition (Impaired walking ability, muscle tear) Attestation: My signature below is to certify that this patient is under my care and that I, or nurse practitioner, or a physician's assistant golf coach working with me, has a [id number] encounter with this patient.
== END 2019-05-26 12:26 | disposition home health service (06) ==
LOC: INPPIK 14:09 → EMEROOPIK 14:09 → INPPIK 16:15
PROVIDERS: ADMIT Internal Medicine; ATTEND Internal Medicine

== ENCOUNTER 2020-11-26 11:15 | Observation (INO) ==
[2020-11-26] MEDS ORDERED: *HR* HYDROmorphone 2 MG/ML SYRINGE IM ONE (11:26)
[2020-11-26 12:05] LABS: Basophils # 0.1 K/mcL (0.0-0.2); Basophils % 0.7 %; Eosinophils # 0.2 K/mcL (0.0-0.6); Hematocrit 41.9 % (35.3-44.9); Hemoglobin 13.6 g/dL (11.5-15.4); Immature Granulocytes % 0.6 % (0-4); Lymphocytes % 19.9 %; Mean Corpuscular HGB Conc 32.5 g/dL (31.6-35.5); Mean Corpuscular Hemoglobin 27.4 pg (28.0-33.3); Mean Corpuscular Volume 84.3 fL (83.0-100.0); Mean Platelet Volume 9.1 fL (9.4-12.4); Monocytes # 0.9 K/mcL (0.0-1.3); Monocytes % 8.6 %; Platelet Count 326 K/mcL (140-400); Red Blood Count 4.97 M/mcL (3.82-4.97); Red Cell Distribution Width 16.3 % (11.5-14.5); Segmented Neutrophils % 68.2 %; White Blood Count 10.3 K/mcL (4.3-11.1)
[2020-11-26 12:19] LABS: BUN/Creatinine Ratio 13 (6-26); Blood Urea Nitrogen 9 mg/dL (8-23); Calcium 9.3 mg/dL (8.6-10.3); Carbon Dioxide 30 mEq/L (23-29); Chloride 97 mEq/L (98-107); Creatine Kinase 50 Units/L (30-223); Glucose 213 mg/dL (70-105); Osmolality,Calculated 287 (280-300); Potassium 3.4 mEq/L (3.5-5.1); Sodium 136 mEq/L (136-145); eGFR For African Americans > 60 (> 60); eGFR For Non-African Americans > 60 (> 60)
[2020-11-26] MEDS ORDERED: Naloxone 0.4 MG/ML INJ IVP PRN (13:32)
[2020-11-26] MEDS ORDERED: Acetaminophen 325 MG TABLET PO PRN (13:32)
[2020-11-26] MEDS ORDERED: Ondansetron 4 MG/2 ML VIAL IVP PRN (13:32)
[2020-11-26] MEDS ORDERED: *HR* Dextrose 50 % in Water (Vial) 50 ML VIAL IVP PRN (15:22)
[2020-11-26] MEDS ORDERED: D5% in Water 1,000 ML IVC PRN (15:22)
[2020-11-26] MEDS ORDERED: Dextrose Gel 15 GM/37.5 ML TUBE PO PRN ×2 (15:22)
[2020-11-26] MEDS: carvediloL 6.25 MG TABLET PO SCH (16:40)
[2020-11-26] MEDS: Insulin LISPRO 300 UNITS/3 ML VIAL SUBQ SCH (16:41)
[2020-11-27] MEDS: *HR* Enoxaparin 40 MG/0.4 ML SYRINGE SQ SCH (05:29)
[2020-11-27 06:39] LABS: Hematocrit 37.8 % (35.3-44.9); Hemoglobin 12.4 g/dL (11.5-15.4); Mean Corpuscular HGB Conc 32.8 g/dL (31.6-35.5); Mean Corpuscular Hemoglobin 27.5 pg (28.0-33.3); Mean Corpuscular Volume 83.8 fL (83.0-100.0); Mean Platelet Volume 9.5 fL (9.4-12.4); Platelet Count 311 K/mcL (140-400); Red Blood Count 4.51 M/mcL (3.82-4.97); Red Cell Distribution Width 16.3 % (11.5-14.5); White Blood Count 8.1 K/mcL (4.3-11.1)
[2020-11-27 07:13] LABS: BUN/Creatinine Ratio 13 (6-26); Blood Urea Nitrogen 8 mg/dL (8-23); Calcium 8.9 mg/dL (8.6-10.3); Carbon Dioxide 29 mEq/L (23-29); Chloride 97 mEq/L (98-107); Glucose 228 mg/dL (70-105); Magnesium 1.4 mg/dL (1.6-2.6); Osmolality,Calculated 286 (280-300); Potassium 3.3 mEq/L (3.5-5.1); Sodium 135 mEq/L (136-145); eGFR For African Americans > 60 (> 60); eGFR For Non-African Americans > 60 (> 60)
[2020-11-27 08:19] LABS: Estimated Average Glucose 192 mg/dl; Hemoglobin A1C 8.3 %
[2020-11-27] MEDS: Aspirin 81 MG TAB.CHEW PO SCH (08:23)
[2020-11-27] MEDS: carvediloL 6.25 MG TABLET PO SCH ×2 (08:23→16:54)
[2020-11-27] MEDS: Folic Acid 1 MG TABLET PO SCH (08:23)
[2020-11-27] MEDS: Magnesium Oxide 400 MG TABLET PO SCH (08:24)
[2020-11-27] MEDS: NIFEdipine XL (24 HR) 30 MG TAB.ER.24 PO SCH ×2 (08:24→08:25)
[2020-11-27] MEDS: Furosemide 20 MG TABLET PO SCH (08:24)
[2020-11-27] MEDS: Insulin LISPRO 300 UNITS/3 ML VIAL SUBQ SCH ×3 (08:28→16:39)
[2020-11-27] MEDS ORDERED: carvediloL 6.25 MG TABLET PO SCH (17:00)
[2020-11-27] MEDS: Insulin DETEMIR 100 UNIT/ML X5UNITS SUBQ SCH (20:23)
[2020-11-27] MEDS: traZODone 50 MG TABLET PO SCH (22:44)
[2020-11-28] MEDS: *HR* Enoxaparin 40 MG/0.4 ML SYRINGE SQ SCH (06:00)
[2020-11-28 07:20] LABS: BUN/Creatinine Ratio 13 (6-26); Blood Urea Nitrogen 9 mg/dL (8-23); Calcium 8.7 mg/dL (8.6-10.3); Carbon Dioxide 29 mEq/L (23-29); Chloride 95 mEq/L (98-107); Glucose 208 mg/dL (70-105); Magnesium 1.4 mg/dL (1.6-2.6); Osmolality,Calculated 277 (280-300); Potassium 3.3 mEq/L (3.5-5.1); Sodium 131 mEq/L (136-145); eGFR For African Americans > 60 (> 60); eGFR For Non-African Americans > 60 (> 60)
[2020-11-28] MEDS: Aspirin 81 MG TAB.CHEW PO SCH (10:15)
[2020-11-28] MEDS: Magnesium Oxide 400 MG TABLET PO SCH (10:16)
[2020-11-28] MEDS: Folic Acid 1 MG TABLET PO SCH (10:16)
[2020-11-28] MEDS: Insulin LISPRO 300 UNITS/3 ML VIAL SUBQ SCH ×3 (10:19→17:56)
[2020-11-28] MEDS: Insulin DETEMIR 100 UNIT/ML X5UNITS SUBQ SCH ×2 (10:23→20:48)
[2020-11-28 13:41] VITALS: BP 104/73
[2020-11-28] MEDS: Furosemide 20 MG TABLET PO SCH (14:17)
[2020-11-28] MEDS: carvediloL 6.25 MG TABLET PO SCH ×2 (14:17→17:59)
[2020-11-28] MEDS ORDERED: Potassium Chloride Elixir 20 MEQ/15 ML UDC PO ONE (15:05)
[2020-11-28] MEDS ORDERED: Ringers Solution, Lactated 500 ML IVC ONE (15:05)
[2020-11-28] MEDS ORDERED: Ibuprofen 400 MG TABLET PO PRN (15:05)
[2020-11-28] MEDS ORDERED: Ringers Solution, Lactated 1,000 ML ONE (18:17)
[2020-11-28] MEDS ORDERED: Ringers Solution, Lactated 0 ML ONE (18:22)
[2020-11-28] MEDS: traZODone 50 MG TABLET PO SCH (20:48)
== END 2020-11-28 21:33 ==
LOC: EMEROOPIK 11:15 → INPPIK 11:15
PROVIDERS: ADMIT Family Medicine; ATTEND Family Medicine